=== PATIENT | female | born 1960 | race Caucasian/White ===

== ENCOUNTER 2024-06-12 06:22 | Day surgery (SDC) | payer MEDICARE, SELFPAY ==
[2024-06-09 10:49] VITALS: BMI 25.8
[2024-06-12 07:11] VITALS: BP 155/78; PULSE 65; RESP 17; TEMP 36.6; O2SAT 98
[2024-06-12] MEDS: LACTATED RINGERS 1000ML 1,000 ML 50 ML IV (07:18)
--- NOTE | 2024-06-12 07:56 | EXP.HP ---
History of Present Illness *Admission Date: 06/12/24 *Reason for visit:: Surveillance colonoscopy-personal history of adenomatous polyps *History of present illness: Mrs. Rodas is a 63-year-old female who is here for surveillance colonoscopy at 5 years. The patient did have acute colitis in 2017 and her colonoscopy at that time had shown 2 larger adenomatous polyps. Repeat surveillance in 2019 with me showed a couple of benign adenomas. The examination is deemed medically necessary for surveillance colonoscopy. The patient has been seen, interviewed and examined prior to the procedure by both myself and the anesthesia provider. [facility] Disclaimer: The information contained in this section may have been updated after the patient was seen, as this information can be updated by other users. Medical History (Updated 06/12/24 @ 08:00 by Raji Guo II, MD) Sleep apnea History of gastroesophageal reflux (GERD) Hypertension Surgical History History of colonoscopy History of tonsillectomy H/O bladder repair surgery History of cholecystectomy History of hysterectomy Family History Mother Family history of diabetes mellitus type II Father Family history of acute heart failure Social History Smoking Status: Never smoker alcohol intake: current current occupational status: retired Travel in the last 8 weeks: Inside the [place] Review of Systems Review of Systems Review of systems (narrative): Negative *Cardiovascular Comments: Negative *Gastrointestinal Comments: Negative *Genitourinary Comments: Negative *Musculoskeletal Comments: Negative *Neurologic Comments: Negative Meds Home Medications and Allergies Home Medications ?Medication ?Instructions ?Recorded ?Confirmed ?Type sodium,potassium,mag sulfates 17.5 See Rx Instructions PO .COMPLEX 05/29/24 Rx gram-3.13 gram-1.6 gram oral soln #354 mL (Suprep Bowel Prep Kit) bupropion HCl 300 mg 24 hr tablet, 300 mg PO DAILY 06/09/24 06/12/24 History extended release fexofenadine 30 mg tablet 60 mg PO Q12H PRN Allergy Symptoms 06/09/24 06/12/24 History fluticasone propionate 50 1 spray intranasal DAILY PRN 06/09/24 06/12/24 History mcg/actuation nasal Allergy Symptoms spray,suspension lisinopril 5 mg tablet 5 mg PO DAILY 06/09/24 06/12/24 History magnesium oxide 420 mg tablet 420 mg PO DAILY 06/09/24 06/12/24 History pantoprazole 40 mg tablet,delayed 40 mg PO DAILY 06/09/24 06/12/24 History release New Prescriptions to Start Prescriptions: Allergies Allergy/AdvReac Type Severity Reaction Status Date / Time No Known Allergies Allergy Verified 06/12/24 07:06 Exam Data for Last 24 hours Vital signs and Labs for Last 24 Hours: Temp Pulse Resp BP Pulse Ox O2 Del Method 97.9 F 65 17 155/78 H 98 Room Air 06/12/24 07:11 06/12/24 07:11 06/12/24 07:11 06/12/24 07:11 06/12/24 07:11 06/12/24 07:11 I & O for Last 24 hours: Intake & Output 06/09/24 06/10/24 06/11/24 06/12/24 23:59 23:59 23:59 23:59 Weight 165 lb *Routine HEENT Exam Head: Present normocephalic Eye: Present EOMI and PERRL ENT: Present mucous membranes moist *Routine Neck Exam Neck: Present supple *Routine Respiratory Exam Respiratory: Present CTA bilaterally *Routine Cardiovascular Exam Cardiovascular: Present RRR *Routine Abdominal Exam Abdominal: Present soft and normoactive bowel sounds; Absent tenderness *Routine Rectal Exam Rectal:: deferred *Routine Genitalia Exam Genitalia:: deferred *Routine Extremities Exam Extremities: Absent cyanosis, clubbing or edema *Routine Skin Exam Skin: Present warm; Absent rash *Routine Neurological Exam Neurological: Present alert and oriented X3 Assessment and Plan *Assessment and plan (1) Personal history of adenomatous and serrated colon polyps: Status: Acute Category: Medical Code(s): Z86.0101 - Personal history of adenomatous and serrated colon polyps Plan A/P: 1. Personal history of adenomatous colon polyps is the preprocedural diagnosis. The patient will be anesthetized/sedated using MAC sedation. The patient has been seen and examined. Cardiac and lung assessment prior to the examination is stable. Proceed with planned surveillance colonoscopy
[2024-06-12 07:59] VITALS: O2SAT 98
--- NOTE | 2024-06-12 08:01 | HMH.PROCNOTE ---
[facility] Procedure Note Date: 06/12/24 Time: 08:18 Procedure Note:: Colonoscopy Procedure Report: Colonoscopy with cold snare polypectomy Endoscopist: Raji Guo II, MD Referring physician: DIANA Mercedes Date of Procedure: June 12, 2024 Equipment: Olympus 190 variable stiffness pediatric colonoscope Sedation: MAC sedation Indication: Mrs. Rodas is a 63-year-old female who is here for follow-up surveillance colonoscopy. She did have a colonoscopy in 2017 at which time she had acute colitis. At that time she had 2 larger adenomatous colon polyps which were removed ([facility]). She had repeat surveillance colonoscopy with mo in 2019 and had a couple of benign polyps removed. She is here for 5-year surveillance interval. She reports no abdominal pain, weight loss, change in her bowel habits or rectal bleeding. She reports no family history of colon cancer. She does take magnesium regularly. Procedure: Prior to the procedure, a history and physical exam was performed, and patient's medications and allergies were reviewed. The risks, benefits and alternatives of the sedation and procedure were discussed with the patient. All questions were answered and informed consent was obtained. The patient was brought to the procedure room. Patient identification and proposed procedure were verified by the physician and the nurse. The patient was placed in a left lateral decubitus position and the scope was passed under direct vision. Throughout the procedure, the patient's blood pressure, pulse, and oxygen saturations were monitored continuously. The colonoscopy was accomplished without difficulty. The patient tolerated the procedure well. Findings: On digital rectal examination there was normal rectal tone. There were no external hemorrhoids. The colonoscope was introduced through the anal canal to the rectum and advanced to the cecum. The ileocecal valve and appendiceal orifice were identified. The scope was advanced a short distance into the ileum which appeared grossly normal. The scope was then withdrawn into the colon. There were 2 polyps (cecum x 1 (4 mm) and transverse x 1 (4 mm)). Both of these were removed via cold snare polypectomy. The remaining cecum, ascending and transverse colon and mucosa were grossly normal. There were scattered diverticuli throughout the descending and sigmoid colon (LEFT colon). There was some mucosal fibrosis in the left colon from prior self-limited colitis healing. The rectum itself was normal. Upon retroflexion within the rectum there were grade 1-2 internal hemorrhoids. The preparation was fair to good throughout with [place] Preparation Score of 7 out of 9. The cecal time was 13 minutes. Impression: 1. Diminutive colonic polyps x 2 2. Left-sided diverticulosis 3. Grade 1-2 internal hemorrhoids Plan: I will follow-up the polyp histology and recommend repeat surveillance colonoscopy again in 5 to 7 years. I would continue magnesium and also recommend psyllium bulking fiber supplementation on a maintenance basis.
[2024-06-12 08:21] VITALS: BP 97/53; PULSE 69; RESP 18; TEMP 36.1; O2SAT 97
--- NOTE | 2024-06-12 08:26 | P.PNANES_ITS ---
[facility] Disclaimer: The information contained in this section may have been updated after the patient was seen, as this information can be updated by other users. Medical History (Updated 06/12/24 @ 08:00 by Raji Guo II, MD) Sleep apnea History of gastroesophageal reflux (GERD) Hypertension Surgical History History of colonoscopy History of tonsillectomy H/O bladder repair surgery History of cholecystectomy History of hysterectomy Family History Mother Family history of diabetes mellitus type II Father Family history of acute heart failure Social History (Updated 06/12/24 @ 08:01 by Raji Guo II, MD) Smoking Status: Never smoker alcohol intake: current substance use type: denies use current occupational status: retired Travel in the last 8 weeks: Inside the [facility] Anesthesia Checklist Patient Identification Patient Identification: Verbal (Name & ) Structural Data Admitted From: Home Planned Operative Procedure/s: colonoscopy Consent for Planned Operative Procedure(s) Verified: Yes NPO Status Verified Time NPO: 00:00 Airway Assessment Mallampati Score:: Class II C-Spine Mobility Assessed: Yes TMJ Mobility Assessed: Yes Dentition: Good Dentition Neurological Assessment Level of Consciousness: Awake, Alert and Appropriate Anesthesia Plan Anesthesia Risk discussed: Yes Anesthesia Plan: Verified ASA Class: II Anesthesia Type: MAC
[2024-06-12 08:31] VITALS: BP 100/55; PULSE 65; RESP 18; O2SAT 94
[2024-06-12 08:41] VITALS: BP 111/63; PULSE 72; RESP 18; O2SAT 94
[2024-06-12 09:00] VITALS: BP 122/68; PULSE 63; RESP 18; O2SAT 95
== END 2024-06-12 09:00 | disposition home or self-care (01) ==
PROVIDERS: PCP Nurse Practitioner Family; Visit Provider Internal Medicine Gastroenterology
PROC: 0DJD8ZZ Inspection of Lower Intestinal Tract, Via Natural or Artificial Opening Endoscopic (ICD-10-PCS; CPT 45378; principal; 2024-06-12 08:00)
DX: K63.5 Polyp of colon (principal); K57.30 Diverticulosis of large intestine without perforation or abscess without bleeding; K64.8 Other hemorrhoids; Z86.0101 Personal history of adenomatous and serrated colon polyps
CPT/HCPCS: 45385; J7120